=== PATIENT | female | born 1990 | race Caucasian/White ===

== ENCOUNTER 2017-03-10 04:00 | Inpatient (IN) | payer MEDICAID, SELFPAY ==
[2017-03-10] MEDS ORDERED: Penicillin G Potassium 5 MU in Sodium Chloride 0.9% 50 ML IVPB ONE (05:25)
--- NOTE | 2017-03-10 05:48 | OBHP ---
Datetime: 03/10/2017 05:46 Admit Comment, IP Provider: Patient is a 26-year-old 011 with EDC 03/08 by LMP of 06/01 and 21 week ultrasound who presents for complaints of SROM at 3:30 AM. She denies contractions contractions vaginal bleeding. She states she is having lower back cramping. OB history is significant for(abdomin al circumference lagging the Bernardo and detected at 37 weeks with recommendation for weekly BPP's and N STs. Receives care at [facility], [place] OB history: at term in 2014; history of spontaneous AB. Past medical history: Denies Past surgical history: Denies No known drug allergies Medications: vitamins Impression: SROM at 40.2 weeks GBS positive Plan: Admit to L_D for expectant vaginal delivery (Penicillin G. Patient declines epidural at at present and states when she is in pain will try Nitrous oxide Datetime: 03/10/2017 05:33 IP Adm Impression: Term, intrauterine IP Admit Plan: Admit to unit Pelvic Type - PN: Adequate Extremities - PN: Normal Abdomen - PN: Normal Lungs - PN: Normal Heart - PN: Normal Neurologic - PN: Normal HEENT - PN: Normal General - PN: Normal Presentation-Admit: Vertex FHR - Baseline A Provider: 120 Amniotic Fluid Color, Provider: Clear Membranes, Provider: Ruptured Contraction Comments Provider: q6 Comments, ACOG Physical Exam: OB labs: A+ rubella immune HIV, RPR, hepatitis B negative GBS positive Gestation - Est Wks by US: 40.2 Pool Provider: Positive EGA AdmitDate IP: 40.2 Vital Signs Provider: Within Normal Limits IP Chief Complaint: Suspected ruptured membranes NICHD Variability Prov Fetus A: Moderate 6-25bpm NICHD Accel Fetus A IP Provider: 15X15 FHR Category Provider Fetus A: Category II NICHD Decel Fetus A IP Provider: None Dilatation, Provider: 2 Effacement, Provider: 70 Station, Provider: -3 Genitourinary Exam: Normal
[2017-03-10 06:02] LABS: BASO % 0.1 % (0.0-2.0); EOS % 0.3 % (0.0-4.0); HEMATOCRIT 32.8 % (34.0-47.0); LYMPH # 1.2 K/uL (1.0-4.3); LYMPH % 20.1 % (20.0-40.0); MEAN CELL VOLUME 88.5 fl (81.0-99.0); MEAN CORPUSCULAR HEMOGLOBIN 28.6 pg (27.0-31.0); MEAN CORPUSCULAR HGB CONC 32.3 g/dL (33.0-37.0); MEAN PLATELET VOLUME 9.9 fl (7.2-11.7); MONO # 0.7 K/uL (0.0-0.8); MONO % 11.2 % (0.0-10.0); NEUT # 4.2 K/uL (1.8-7.0); NEUT % 68.3 % (50.0-75.0); RED CELL DISTRIBUTION WIDTH 13.6 % (11.5-14.5); WHITE BLOOD COUNT 6.1 K/uL (4.8-10.8)
--- NOTE | 2017-03-10 06:04 | OBADHP ---
Datetime: 03/10/2017 05:46 Admit Comment, IP Provider: Patient is a 26-year-old 011 with EDC 03/08 by LMP of 2/10 and 21 week ultrasound who presents for complaints of SROM at 3:30 AM. She denies contractions contractions vaginal bleeding. She states she is having lower back cramping. OB history is significant for(abdomin al circumference lagging the Bernardo and detected at 37 weeks with recommendation for weekly BPP's and N STs. Receives care at [facility] ([place] OB history: at term in 2014; history of spontaneous AB. Past medical history: Denies Past surgical history: Denies No known drug allergies Medications: vitamins Impression: SROM at 40.2 weeks GBS positive Plan: Admit to L_D for expectant vaginal delivery (Penicillin G. Patient declines epidural at at present and states when she is in pain will try Nitrous oxide Datetime: 03/10/2017 05:33 Pelvic Type - PN: Adequate Extremities - PN: Normal Abdomen - PN: Normal Lungs - PN: Normal Heart - PN: Normal Neurologic - PN: Normal HEENT - PN: Normal General - PN: Normal Presentation-Admit: Vertex FHR - Baseline A Provider: 120 Amniotic Fluid Color, Provider: Clear Membranes, Provider: Ruptured Contraction Comments Provider: q6 Comments, ACOG Physical Exam: OB labs: A+ rubella immune HIV, RPR, hepatitis B negative GBS positive Gestation - Est Wks by US: 40.2 Pool Provider: Positive Vital Signs Provider: Within Normal Limits IP Chief Complaint: Suspected ruptured membranes NICHD Variability Prov Fetus A: Moderate 6-25bpm NICHD Accel Fetus A IP Provider: 15X15 FHR Category Provider Fetus A: Category II NICHD Decel Fetus A IP Provider: None Dilatation, Provider: 2 Effacement, Provider: 70 Station, Provider: -3 Genitourinary Exam: Normal EGA AdmitDate IP: 40.2 IP Adm Impression: Term, intrauterine IP Admit Plan: Admit to unit (Annotations: Data stored by CPN on behalf of user)
[2017-03-10] MEDS: Lactated Ringer's 1,000 ML IV SCH ×3 (06:09→19:21)
[2017-03-10 06:11] VITALS: O2SAT 99
[2017-03-10] MEDS ORDERED: Oxytocin 30 UNITS in Sodium Chloride 0.9% 500 ML IV ONE (06:30)
--- NOTE | 2017-03-10 11:09 | OBPN ---
Datetime: 03/10/2017 11:04 IP Progress Impression: Premature rupture of membranes IP Procedures: Sterile Vag Exam IP Progress Plan: Induction Membranes, Provider: Ruptured Amniotic Fluid Color, Provider: Clear FHR - Baseline A Provider: 120 IP Progress Note Comment: 26 yo at 40+2 wks w/ PROM, on pitocin Pt placede in RLQ, oxygen on pt, pt receiving IVF PCN for GBS prohphylaxis Will follow FH closely NICHD Accel Fetus A IP Provider: 10X10 FHR Category Provider Fetus A: Category II NICHD Variability Prov Fetus A: Moderate 6-25bpm NICHD Decel Fetus A IP Provider: Variable Datetime: 03/10/2017 05:33 Pool Provider: Positive Contraction Comments Provider: q6 Gestation - Est Wks by US: 40.2 Presentation-Admit: Vertex Vital Signs Provider: Within Normal Limits Dilatation, Provider: 2 Effacement, Provider: 70 Station, Provider: -3
[2017-03-10] MEDS ORDERED: Dextrose 5%/Lactated Ringer's 1,000 ML IV SCH (14:15)
[2017-03-10] MEDS ORDERED: Benzocaine/Menthol SPRAY TOP PRN ×2 (17:05→19:17)
[2017-03-10] MEDS ORDERED: Oxycodone/Acetaminophen 5/325 mg Tab PO PRN ×2 (17:05→19:17)
--- NOTE | 2017-03-10 17:41 | OBDS ---
DELIVERY PERSONNEL Delivery Doctor: Juju Whitehead MD Ceramic Engineering Professor: Brittany Harley RN MATERNAL INFORMATION Delivery Anesthesia: Local Medications in Delivery: pi Estimated Blood Loss (ml): 100 Placenta Cultured: No Maternal Complications: Other Other Maternal Complications: variable and early decel Provider Comments: Pt progressed to complete and pushed to deliver a viable female through cl ear fluid at 16:49. Apgars 9 and 9. Wt 6#5, 2870gms. Mouth and nares bulb-suctioned. Cord clamped and cut. Infant placed on warmer w/ waiting machine pan greaser. Cord blood collected. Placenta delivere d spontaneously intact. 1 % lidocaine injected into left periurethral tear. Left periurethral tear approximated w/ a single interrupted stitch of 3-0 vicryl rapide. Perineum intact. Rectum intact. Pt and baby tolerated the procedure well. EBL 100 LABOR SUMMARY EDC: 03/08/2017 00:00 No. Babies in Womb: 1 Attempted: No Labor Anesthesia: None LABOR INFORMATION Onset of Labor: 03/10/2017 03:30 Oxytocin: Augmentation Group B Beta Strep: Positive Antibiotics # of Doses: indigo 5 x1 indigo 2.5 x2 Antibiotics Time of Last Dose: 14:15 Steroids Given: None MEMBRANES Membranes Rupture Method: Spontaneous Rupture of Membranes: 03/10/2017 03:30 Length of Rupture (hrs): 13.32 Amniotic Fluid Color: Clear Amniotic Fluid Amount: Small Amniotic Fluid Odor: Normal STAGES OF LABOR Stage 3 hrs: 0 Stage 3 min: 3 Total Time in Labor hrs: 13 Total Time in Labor min: 22 VAGINAL DELIVERY Episiotomy: None Laceration Extension: First Degree Laceration Type: Periurethral Laceration Repair: Yes Initial Vag Sponge Count: 10 Final Vag Sponge Count: 10 Initial Vag Sharps Count: 1 Final Vag Sharps Count: 1 Sponge Count Correct: Yes Sharps Count Correct: Yes BABY A INFORMATION Delivery Date/Time: 03/10/2017 16:49 Method of Delivery: Vaginal Born in Route : No : N/A Forceps: N/A Vacuum Extraction: N/A Shoulder Dystocia : No SHOULDER DYSTOCIA BABY A Infant Delivery Date/Time: 03/10/2017 16:49 PRESENTATION/POSITION BABY A Presentation: Cephalic Cephalic Presentation: Vertex Vertex Position: Left Occipital Anterior Breech Presentation: N/A PLACENTA INFORMATION BABY A Placenta Delivery Time : 03/10/2017 16:52 Placenta Method of Delivery: Spontaneous Placenta Status: Delivered SCORES BABY A Heart Rate 1 min: >100 bpm Resp Effort 1 min: Good Cry Reflex Irritability 1 min: Cough or Sneeze or Pulls Away Muscle Tone 1 min: Active Motion Color 1 min: Body [place], Extremities Blue Resuscitation Effort 1 min: Tactile Stimulation SCORE 1 MIN: 9 Heart Rate 5 min: >100 bpm Resp Effort 5 min: Good Cry Reflex Irritability 5 min: Cough or Sneeze or Pulls Away Muscle Tone 5 min: Active Motion Color 5 min: Body [place], Extremities Blue SCORE 5 MIN: 9 INFANT INFORMATION BABY A Gestational Age at Delivery: 40.2 Gestational Status: Term Infant Outcome : Liveborn Infant Condition : Stable Sex: Female WEIGHT/LENGTH BABY A Infant Birthweight (gms): 2870 Infant Weight (lb): 6 Weight (oz): 5 Infant Length Inches: 19.00 Infant Length cms: 48.3 CORD INFORMATION BABY A No. Cord Vessels: 3 Nuchal Cord : N/A Nuchal Cord Other: none True Knot: none Infant Cord pH Baby Arterial: none Infant Cord pH Baby Venous: none Cord Blood Taken: Yes Banking/Donate Info: none Infant Suction: Mouth; Nose ASSESSMENT BABY A Infant Complications: None Physical Findings at Delivery: Within Normal Limits Respirations: Appears Normal Pattern Assembler/ALS Called : Yes Care By: dr wayne / brittany botello / antonia mclaughlin rn Transferred To: Remains with Mother
[2017-03-11 06:15] LABS: BASO % 0.2 % (0.0-2.0); EOS % 0.2 % (0.0-4.0); HEMATOCRIT 32.5 % (34.0-47.0); LYMPH # 1.5 K/uL (1.0-4.3); LYMPH % 13.6 % (20.0-40.0); MEAN CELL VOLUME 89.4 fl (81.0-99.0); MEAN CORPUSCULAR HEMOGLOBIN 28.8 pg (27.0-31.0); MEAN CORPUSCULAR HGB CONC 32.3 g/dL (33.0-37.0); MEAN PLATELET VOLUME 9.7 fl (7.2-11.7); MONO # 1.2 K/uL (0.0-0.8); MONO % 11.1 % (0.0-10.0); NEUT # 8.3 K/uL (1.8-7.0); NEUT % 74.9 % (50.0-75.0); RED CELL DISTRIBUTION WIDTH 13.8 % (11.5-14.5); WHITE BLOOD COUNT 11.1 K/uL (4.8-10.8)
[2017-03-11] MEDS ORDERED: Patient's Own Med (Prenatal Vit Calc,Iron,Folic [Prenatal Vitamins] 1 TAB) PO SCH (09:00)
[2017-03-11] MEDS ORDERED: Influenza Vaccine 18yr & older 0.5 ML/45 MCG SYR IM ONE (10:00)
--- NOTE | 2017-03-11 11:42 | OBPPN ---
Datetime: 03/11/2017 06:16 PP Pain Prov: Within normal limits PP Nausea Prov: Denies PP Flatus Prov: No PP BM Prov: No PP Breasts Prov: Normal PP Heart Prov: Normal PP Lungs Prov: Normal PP Abdomen/Uterus Prov: Normal PP Lochia Prov: Normal PP Vulva/Perineum Prov: Normal PP CVA Tenderness Prov: Not Done PP Extremities Prov: Normal PP C/S Incision Prov: Not Applicable PP Progress Prov: Normal PP Impression Prov: Normal progression PP Plan Prov: Continue present management PP Progress Note Prov: S: 26 yo s/p NVD on 02/1917 at 4:49PM. Pt. [facility]. No overnight events. Pt reports occasional abdominal pain, but well controlled with pain meds. Pt is ambulating without any difficulties. Breast feeding baby. Tolerating PO diet. Lochia is s imilar to light menses in volume. Voiding freely, No Bowel movement, or passing gas per rectum. Denie s fever/chills, diarrhea, nausea/vomiting, chest pain, dyspnea, and dizziness. O: VS: stable GEN: NAD Cardio: s1s2, no M/G/R Resp: clear breath sounds b/l Abdomen: BS+, NT, Uterus is firm and at the level of the umbilicus. EXT: No edema, calves nontender NEURO/PSYCHI: AAOx3, no grossly focal deficit, preserved affect and mood. Assessment/Plan: 26 yo s/p NVD. Pt remains afebrile, tolerating pain with medication, tolerat ing PO intake, doing well on PPD1. Encourage ambulation and breast feeding Ibuprofen and Percocet for pain Senokot for constipation F/u CBC post-delivery: --- Shweta Walsh, PGY-1 OB attending: Patient seen and examined by me. Agree with above assessment and plan. Patient states she is tolerating po well. no c/o IP PP Procedures: None
[2017-03-12] MEDS ORDERED: Influenza Vaccine 18yr & older 0.5 ML/45 MCG SYR IM ONE (06:11)
--- NOTE | 2017-03-12 10:13 | OBPPN ---
Datetime: 03/12/2017 06:21 PP Pain Prov: Within normal limits PP Nausea Prov: Denies PP Flatus Prov: Yes PP BM Prov: Yes PP Breasts Prov: Not Done PP Heart Prov: Normal PP Lungs Prov: Normal PP Abdomen/Uterus Prov: Normal PP Lochia Prov: Normal PP Vulva/Perineum Prov: Not Done PP CVA Tenderness Prov: Not Done PP Extremities Prov: Normal PP C/S Incision Prov: Not Applicable PP Progress Prov: Normal PP Impression Prov: Normal progression PP Plan Prov: Continue present management; Discharge PP Progress Note Prov: S: PPD#2, 26 yo s/p NVD on 02/1917 at 4:49PM. Pt. is seen and examined a t bedside this AM. No overnight events. Denies any pain, ambulating and voiding w/o any issue. Breast feeding baby. Tolerating PO diet. Lochia is similar to light menses in volume. Denies fever/chills, diarrhea, nausea/vomiting, chest pain, dyspnea, and dizziness. O: VS: stable GEN: NAD Cardio: s1s2, no M/G/R Resp: clear breath sounds b/l Abdomen: BS+, NT, Uterus is firm and at the level of the umbilicus. EXT: No edema, calves nontender NEURO/PSYCHI: AAOx3, no grossly focal deficit, preserved affect and mood. Assessment/Plan: PPD#2, 26 yo s/p NVD. Encourage ambulation and breast feeding Ibuprofen for pain Senokot for constipation CBC post-delivery: 10.5/32.5 Patient is stable for d/c home today Instructed to f/u clinic for PP in 4-6weeks and biometrics consultant for baby in 3-5 days Case discussed with attending --- Shweta Walsh, PGY-1 OB Hospitalist note: Pt seen and examined this morning on rounds. Agree with PGY1 note MAHNDO IP PP Procedures: None Vital Signs Provider PP: Reviewed
--- NOTE | 2017-03-12 10:15 | OBDCSUM ---
Datetime: 03/12/2017 06:26 Discharged to, Provider: Home Follow up at, Provider: Lydia Dunbar Instr Activity: Normal activity Disch Instr Diet: Regular Discharge Instructions, Provider: Routine instructions given Discharge Diagnosis, Provider: Term Delivered Discharge Time: 03/12/2017 10:00 Follow up in weeks, Provider: PP visit: 4-6 weeks, NB visit: 3-5 days Disch Referrals: None Contraception discussed, Prov: Yes Disch Activity Restrictions: No exercising; No lifting; No sexual activity; Nothing in vagina - Inte rcourse, tampons, douche Discharge Comment, Provider: 26 y/o female, , who delivers a healthy female via NVD on 05/10/16. Uncomplicated course. Mother is doing well, Lochia is minimal, pt is ambulating, tolerating PO diet, and remains afebrile. 1. Encourage 2. Continue PNV 3. Ibuprofen for pain. Senokot for constipation. 4. Ambulatory with caution, nothing per vagina, no heavy lifting, avoid stairs, if excessive bleed ing or fever without relief from Tylenol go to ED 5. F/U at [facility] for PP visit in 6 weeks Baby in 3-4 days Patient is stable for d/c home Case discussed with Attending --- Shweta Walsh, PGY-1 OB Hospitalist note: Pt seen and examined this morning on rounds. Agree with PGY1 note MAHNDO Contraception after Delivery: Undecided
[2017-03-12 16:51] VITALS: BP 116/68; PULSE 68; RESP 18; TEMP 98
== END 2017-03-12 12:40 | disposition home or self-care (01) | DRG 372 ==
LOC: H.EROB2 04:00 → H.EROB 04:17 → H.L&D 05:19 → H.EROB2 05:30 → H.L&D 05:30 → H.OB/GYN 20:00
PROVIDERS: ADMIT Obstetrics & Gynecology; ATTEND Obstetrics & Gynecology
PROC: 10E0XZZ Delivery of Products of Conception, External Approach (ICD-10-PCS; principal; 2017-03-10)
PROC: 4A1HXCZ Monitoring of Products of Conception, Cardiac Rate, External Approach (ICD-10-PCS; 2017-03-10)
PROC: 0HQ9XZZ Repair Perineum Skin, External Approach (ICD-10-PCS; 2017-03-10)
DX: O99.824 Streptococcus B carrier state complicating childbirth (principal); O42.92 Full-term premature rupture of membranes, unspecified as to length of time between rupture and onset of labor; K59.00 Constipation, unspecified; Z37.0 Single live birth; O70.0 First degree perineal laceration during delivery; Z3A.40 40 weeks gestation of pregnancy